=== PATIENT | female | born 1930 | race Caucasian/White ===

== ENCOUNTER → 2017-04-15 | Day surgery (SDC) | payer OTHER ==
[~2017-04-15] MED LIST: BUPIVACAINE/EPINEPHRINE 0.5% PF 30 ML VIAL ONE; LACTATED RINGER'S 1000 ML INJ 1,000 ML ONE; LIDOCAINE 1%/EPINEPHrine 1:100,000 SOLN 50 ML VIAL ONE; ONDANSETRON HCL 4 MG/2 ML VIAL IV PUSH ONE; PROPOFOL 500 MG/50 ML BTL IV ONE; ceFAZolin 2 GM PREMIX 50 ML ONE
--- NOTE | 2017-04-15 09:23 | TN ---
cc: WOODROW SIERRA MD DATE OF SURGERY 04/15/2017 PREOPERATIVE DIAGNOSIS T9 and T11 acute compression fractures. POSTOPERATIVE DIAGNOSIS T9 and T11 acute compression fractures. PROCEDURE T9 and T11 kyphoplasty with placement of bone cement spacer. SURGEON Woodrow Sierra MD COPPERSMITH APPRENTICE None ANESTHESIA TIVA ESTIMATED BLOOD LOSS Minimal COMPLICATIONS None SPECIMENS None INDICATIONS FOR PROCEDURE The patient is an 86-year-old female who presented to my office with complaints of a several week history of maybe to lower back pain. On imaging, the patient was found to have a T9 and T10 acute compression fracture with bony edema. Options of management were discussed with the patient. After greater than six weeks of conservative treatment with pain medication, activity modification, and bracing, the patient states her pain remains debilitating and she would like to consider kyphoplasty. Options of management were discussed. The risks, benefits, and alternatives were discussed. The risk of surgery including, but not limited to infection, extravasation of cement, neurologic injury, possible future compression fractures, and other unforeseen complications were all discussed with the patient. At this time, she has consented to the procedure. DESCRIPTION OF THE PROCEDURE The patient was brought back to the operating room and given limited sedation. The patient was carefully rolled to a prone position on a radiolucent table. All pressure points were protected and the back was scrubbed with alcohol followed by Hibiclens followed by Chloraprep and draped sterilely. Antibiotics were given within one hour of incision. A time-out was then performed. AP and lateral fluoroscopic images were used to identify the proper levels, T9 and T11. This was compared to preoperative studies. Skin markings were made. Local anesthesia was utilized with a combination of 1% lidocaine plain and quarter percent Marcaine with epinephrine. A double balloon approach was utilized from the left side first at the T11 level initially. A small awl was placed in the subcutaneous tissue through the pedicle and into the vertebral body at an oblique angle. This was followed by placement of a balloon intervertebral body. The balloon was then elevated. The same procedure was replicated from the right side with a small awl being placed through the subcutaneous tissue, through the pedicle and into the vertebral body at an oblique angle. A second balloon was then placed into the vertebral body and elevated. The wounds were left elevated at T11 and I then turned my attention to T9. At this level, a single balloon approach was utilized from the left side. A small awl was then placed through the subcutaneous tissue, through the pedicle on the vertebral body at an oblique angle. This was followed by placement of a balloon centrally in the vertebral body. The balloon was then elevated. One of the balloons from T11 was deflated and then inserted through this cannula and subsequently elevated. On the back table, methyl methacrylate was mixed. After approximately 11 minutes, the cement was injected into both the T9 and T11 levels. Once the cement had hardened, the tubes were removed. The wound was irrigated, anesthetized and then closed with 4-0 Vicryl followed by Dermabond. Final intraoperative x-rays were obtained which demonstrated the cement remained within acceptable position in both the T9 and T11 vertebral bodies. The patient was awoken and taken to the recovery room in satisfactory condition. DISPOSITION Plan will be for the patient to be discharged from the postoperative area, once awake and tolerating oral intake. The patient will follow up in my office approximately two weeks after the procedure. MD PEDRITO Rush/CHRIS /9:03 AM /9:13 AM
--- NOTE | 2017-04-15 10:57 | RADRPT ---
EXAM DATE/TIME: 04/15/2017 08:54 [facility] COMPARISON: No previous studies available for comparison. INDICATIONS : Thoracic spine T9 & T11 kyphoplasty. OR. MEDICAL HISTORY : None. SURGICAL HISTORY : None. ENCOUNTER: Initial ACUITY: 1 day PAIN SCORE: Non-responsive. LOCATION: Thoracic spine T9 & T11 FINDINGS: Two fluoroscopic images centered in the thoracolumbar region. Compression deformities of the lower th oracic spine with cement augmentation. Cement is confined to the vertebral bodies without evidence fo r significant epidural extension of cement. The remaining vertebral body heights are intact. CONCLUSION: 1. Status post cement augmentation, as above. Arsen Mcintyre MD on April 15, 2017 at 10:47 Board Certified Radiologist. This report was verified electronically.
== END | disposition home or self-care (01) ==
LOC: ESDC 06:27
PROVIDERS: ATTEND Orthopaedic Surgery Orthopaedic Surgery of the Spine
DX: S22.070A Wedge compression fracture of T9-T10 vertebra, initial encounter for closed fracture (principal); S22.080A Wedge compression fracture of T11-T12 vertebra, initial encounter for closed fracture
CPT/HCPCS: 01936; 22513; 22515; 72100; 76000; J0690; J2405; J3010; J7120